=== PATIENT | male | born 1940 | race Hispanic/Latino ===

== ENCOUNTER 2018-04-13 14:21 | Emergency (ER) | payer MEDICARE ==
[2018-04-13] MEDS ORDERED: TYLENOL PO ONE (15:37)
--- NOTE | 2018-04-13 15:46 | Emergency Department Report ---
HPI - General Chief Complaint: Fall Time Seen by Provider: 04/13/18 15:25 - HPI HPI: Room 26 The patient is 77-year-old male presenting with chief complaint fall/head injury. Patient is currently at [facility] under [facility] for suicidal ideation. Patient states he was eating lunch when he dropped some food floor. The patient states he bent over to pick it up and lost his balance falling forward striking his face. Patient denies loss of consciousness. Patient complains of a mild headache. Patient denies nausea vomiting or any other forms of pain. 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" - Surgical History Additional Surgical History: Knee surgery - Family History Family history: no significant - Social History Smoking Status: Never Smoker Substance Use Type: None ED Review of Systems ROS: Stated complaint: FALL/HIT HEAD Other details as noted in HPI Constitutional: no symptoms reported Eyes: denies: eye pain ENT: denies: throat pain Respiratory: no symptoms reported Cardiovascular: denies: chest pain Endocrine: no symptoms reported Gastrointestinal: denies: abdominal pain, nausea, vomiting Genitourinary: denies: dysuria Musculoskeletal: denies: back pain Skin: change in color Neurological: headache Psychiatric: suicidal thoughts (at [facility] for suicidal ideation) Physical Exam - Physical Exam Vital Signs: Vital Signs 04/13/18 14:48 Temperature 97.6 F Pulse Rate 108 H Respiratory 16 Rate Blood Pressure 139/97 O2 Sat by Pulse 96 Oximetry Physical Exam: GENERAL: The patient is well-developed well-nourished male lying on stretcher not appearing to be in acute distress. [] HEENT: Normocephalic. Trace left periorbital ecchymosis. Extraocular motions are intact. Patient has moist mucous membranes. NECK: Supple. Trachea midline. No axial step off CHEST/LUNGS: Clear to auscultation. There is no respiratory distress noted. HEART/CARDIOVASCULAR: Regular. There is no tachycardia. There is no gallop rub or murmur. ABDOMEN: Abdomen is soft, nontender. Patient has normal bowel sounds. There is no abdominal distention. SKIN: There is no rash. There is no edema. There is no diaphoresis. NEURO: The patient is awake and alert. The patient is cooperative. The patient has no focal neurologic deficits. The patient has normal speech. Cranial nerves II through XII grossly intact, no drift MUSCULOSKELETAL: There is no evidence of acute injury. ED Course Vital Signs 04/13/18 14:48 Temperature 97.6 F Pulse Rate 108 H Respiratory 16 Rate Blood Pressure 139/97 O2 Sat by Pulse 96 Oximetry ED Medical Decision Making - Radiology Data Radiology results: report reviewed (CT head, CT cervical spine, CT facial bones) , image reviewed (CT head, CT cervical spine, CT facial bones) [address] [address] Cat Scan Report Signed Patient: JULY BARKER MR#: [id number] : 1940 Acct:[id number] Age/Sex: 77 / M ADM Date: 04/13/18 Loc: ED Attending Dr: Ordering Physician: CHRISTIN SAM MD Date of Service: 04/13/18 Procedure(s): CT head/brain wo con Accession Number(s): [id number] cc: CHRISTIN SAM MD FINAL REPORT EXAM: CT HEAD/BRAIN WO CON HISTORY: fall and head injury/headache TECHNIQUE: CT head without contrast PRIORS: None. FINDINGS: No acute intra-axial or extra- axial hemorrhage is identified. There is no evidence of midline shift or mass effect. There is generalized prominence of ventricles and sulci consistent with mild generalized atrophy. Conklin-white matter differentiation is intact. No acute parenchymal abnormalities seen. There are patchy and confluent hypodensities within the supratentorial white matter. Bony calvarium is grossly intact. Visualized portions of the mastoids and paranasal sinuses are unremarkable. IMPRESSION: Chronic small vessel white matter ischemic change Mild generalized atrophy Transcribed By: CAROLYN Dictated By: MARTINEZ CARRERO MD Electronically Authenticated By: MARTINEZ CARRERO MD Signed Date/Time: 04/13/181654 DD/DT : 04/13/181654 TD/TT: 04/13/181654 [address] [address] Cat Scan Report Signed Patient: JULY BARKER#: [id number] : 1940 Acct:[id number] Age/Sex: 77 / M ADM Date: 04/13/18 Loc: ED Attending Dr: Ordering Physician: CHRISTIN SAM MD Date of Service: 04/13/18 Procedure(s): CT facial bones wo con Accession Number(s): [id number] cc: CHRISTIN SAM MD FINAL REPORT EXAM: CT FACIAL BONES WO CON HISTORY: fall, head injury. Left periorbital ecchymosis TECHNIQUE: Maxillofacial CT with coronal and sagittal multiplanar reconstruction PRIORS: None. FINDINGS: The nasal bone is intact. The zygomatic arches are within normal limits. No evidence of fluid level within the paranasal sinuses. Minimal mucosal thickening noted left maxillary sinus. No intraorbital abnormalities seen. No facial fractures are identified. The TM joints and the mandible are within normal limits. IMPRESSION: Negative. No evidence of acute facial bone fracture. Transcribed By: [facility] Dictated By: MARTINEZ CARRERO MD Electronically Authenticated By: MARTINEZ CARRERO MD Signed Date/Time: 04/13/181699 DD/ 99 TD/TT: 04/13/181699 [facility] [address] [place] [address] Cat Scan Report Signed Patient: JULY BARKER MR#: [id number] : 1940 Acct:[id number] Age/Sex: 77 / M ADM Date: 04/13/18 Loc: ED Attending Dr: Ordering Physician: CHRISTIN SAM MD Date of Service: 04/13/18 Procedure(s): CT cervical spine wo con Accession Number(s): [id number] cc: CHRISTIN SAM MD FINAL REPORT EXAM: CT CERVICAL SPINE WO CON HISTORY: fall and head injury/headache TECHNIQUE: CT cervical spine with reconstructions PRIORS: None. FINDINGS: Vertebral bodies demonstrate normal height. There is multilevel degenerative disc space narrowing from C3-C4 through C7-T1 There is multilevel facet joint arthropathy present. There is minimal grade 1 retrolisthesis of C4 relative to C5 secondary to degenerative change. The facet joints demonstrate normal alignment. The spinous processes are intact. Craniocervical junction is unremarkable. C1 and C2 are intact. IMPRESSION: Degenerative disc disease facet joint arthropathy Grade 1 spondylolisthesis at C4-C5 No acute traumatic abnormality identified Transcribed By: CAROLYN Dictated By: MARTINEZ CARRERO MD Electronically Authenticated By: MARTINEZ CARRERO MD Signed Date/Time: 04/13 DD/ 13 TD/TT: 04/13/181713 - Differential Diagnosis closed head injury, ICH, facial fracture, cervical fracture Critical care attestation.: If time is entered above; I have spent that time in minutes in the direct care of this critically ill patient, excluding procedure time. ED Disposition Clinical Impression: Closed head injury, Facial contusion Disposition: DC/TX-65 PSY HOSP/PSY UNIT Is pt being admited?: No Does the pt Need Aspirin: No Condition: Stable Instructions: Minor Head Injury (ED) Additional Instructions: Return to the emergency department immediately should you develop worsening symptoms, fever, inability to tolerate food or liquid or any other concerns. Referrals: PRIMARY CAREMD [Primary Care Provider] - 3-5 Days Time of Disposition: 17:25
--- NOTE | 2018-04-13 17:00 | Cat Scan Report ---
FINAL REPORT EXAM: CT HEAD/BRAIN WO CON HISTORY: fall and head injury/headache TECHNIQUE: CT head without contrast PRIORS: None. FINDINGS: No acute intra-axial or extra-axial hemorrhage is identified. There is no evidence of midline shift or mass effect. There is generalized prominence of ventricles and sulci consistent with mild generalized atrophy. Conklin-white matter differentiation is intact. No acute parenchymal abnormalities seen. There are patchy and confluent hypodensities within the supratentorial white matter. Bony calvarium is grossly intact. Visualized portions of the mastoids and paranasal sinuses are unremarkable. IMPRESSION: Chronic small vessel white matter ischemic change Mild generalized atrophy
--- NOTE | 2018-04-13 17:05 | Cat Scan Report ---
FINAL REPORT EXAM: CT FACIAL BONES WO CON HISTORY: fall, head injury. Left periorbital ecchymosis TECHNIQUE: Maxillofacial CT with coronal and sagittal multiplanar reconstruction PRIORS: None. FINDINGS: The nasal bone is intact. The zygomatic arches are within normal limits. No evidence of fluid level within the paranasal sinuses. Minimal mucosal thickening noted left maxillary sinus. No intraorbital abnormalities seen. No facial fractures are identified. The TM joints and the mandible are within normal limits. IMPRESSION: Negative. No evidence of acute facial bone fracture.
--- NOTE | 2018-04-13 17:19 | Cat Scan Report ---
FINAL REPORT EXAM: CT CERVICAL SPINE WO CON HISTORY: fall and head injury/headache TECHNIQUE: CT cervical spine with reconstructions PRIORS: None. FINDINGS: Vertebral bodies demonstrate normal height. There is multilevel degenerative disc space narrowing from C3-C4 through C7-T1 There is multilevel facet joint arthropathy present. There is minimal grade 1 retrolisthesis of C4 relative to C5 secondary to degenerative change. The facet joints demonstrate normal alignment. The spinous processes are intact. Craniocervical junction is unremarkable. C1 and C2 are intact. IMPRESSION: Degenerative disc disease facet joint arthropathy Grade 1 spondylolisthesis at C4-C5 No acute traumatic abnormality identified
[2018-04-13 18:57] VITALS: BP 133/112
== END 2018-04-13 19:07 ==
LOC: ED 14:21
DX: S00.83XA Contusion of other part of head, initial encounter (principal); F03.90 Unspecified dementia, unspecified severity, without behavioral disturbance, psychotic disturbance, mood disturbance, and anxiety; I10 Essential (primary) hypertension; E78.00 Pure hypercholesterolemia, unspecified; I25.10 Atherosclerotic heart disease of native coronary artery without angina pectoris; W18.39XA Other fall on same level, initial encounter; Y93.89 Activity, other specified; Y92.89 Other specified places as the place of occurrence of the external cause; Y99.8 Other external cause status
CPT/HCPCS: 70450; 70486; 72125; 99284